=== PATIENT | male | born 1995 ===

== ENCOUNTER 2017-03-14 19:52 | Emergency (ER) | payer SELFPAY ==
[2017-03-14] MEDS ORDERED: Albuterol 0.083% Inhal Sol (2.5 mg/3 mL) UD INH ONE (20:46)
[2017-03-14] MEDS ORDERED: Albuterol 0.083% Inhal Sol (2.5 mg/3 mL) UD ONE (21:23)
[2017-03-14 21:36] LABS: BASO # 0.1 K/uL (0.0-0.2); BASO % 0.8 % (0.0-2.0); EOS # 0.3 K/uL (0.0-0.7); EOS % 2.3 % (0.0-4.0); HEMOGLOBIN 13.5 g/dL (12.0-18.0); LYMPH # 2.7 K/uL (1.0-4.3); LYMPH % 23.4 % (20.0-40.0); MEAN CELL VOLUME 80.3 fl (80.0-94.0); MEAN CORPUSCULAR HEMOGLOBIN 26.2 pg (27.0-31.0); MEAN CORPUSCULAR HGB CONC 32.6 g/dL (33.0-37.0); MEAN PLATELET VOLUME 7.9 fl (7.2-11.7); MONO % 8.8 % (0.0-10.0); NEUT # 7.4 K/uL (1.8-7.0); NEUT % 64.7 % (50.0-75.0); NRBC % 0.1 % (0.0-0.0); RBC 5.13 Mil/uL (4.40-5.90); RED CELL DISTRIBUTION WIDTH 13.9 % (11.5-14.5); WHITE BLOOD COUNT 11.4 K/uL (4.8-10.8)
[2017-03-14 21:50] LABS: ALB/GLOB RATIO 1.2 (1.0-2.1); ALBUMIN 4.5 g/dL (3.5-5.0); CALCIUM 9.1 mg/dL (8.4-10.2); GFR AFRICAN-AMERICAN > 60; GFR NON-AFRICAN AMERICAN > 60
[2017-03-14 22:00] LABS: ALT/SGPT 69 U/L (21-72); AST/SGOT 43 U/L (17-59); BLOOD UREA NITROGEN 10 mg/dl (9-20)
--- NOTE | 2017-03-14 22:11 | ED PDOC ---
HPI: SOB/CHF/COPD Time Seen by Provider: 03/14/17 20:17 Chief Complaint (Nursing): Shortness Of Breath Chief Complaint (Provider): Left flank pain with SOB History Per: Patient History/Exam Limitations: no limitations Onset/Duration Of Symptoms: Days (few) Current Symptoms Are (Timing): Still Present Additional Complaint(s): Carlos Sage is a 21 year old male, with no past medical history, who presents to the emergency department complaining of a worsening left flank pain associated with shortness of breath onset for a few days. He denies any PE history or asthma. Patient denies any recent travel, trauma, fall, fever or chills. No further medical complaints. PMD: Brent Man - Risk Factors PE Risk Factors: Neg: Previous PE Past Medical History Reviewed: Historical Data, Nursing Documentation, Vital Signs Vital Signs: Last Vital Signs Temp 98.9 F 03/14/17 19:56 Pulse 99 H 03/14/17 19:56 Resp 18 03/14/17 21:50 BP 152/93 H 03/14/17 19:56 Pulse Ox 100 03/15/17 00:36 - Medical History PMH: No Chronic Diseases - Surgical History Surgical History: No Surg Hx - Family History Family History: States: Unknown Family Hx - Social History Current smoker - smoking cessation education provided: Yes (light smoker <10 cigarettes daily) Alcohol: None Drugs: Denies - Allergies Allergies/Adverse Reactions: Allergies Allergy/AdvReac Type Severity Reaction Status Date / Time No Known Allergies Allergy Verified 03/14/17 19:56 Review of Systems ROS Statement: Except As Marked, All Systems Reviewed And Found Negative Constitutional: Negative for: Fever, Chills Respiratory: Positive for: Shortness of Breath Musculoskeletal: Positive for: Other (left flank pain) Physical Exam - Reviewed Nursing Documentation Reviewed: Yes Vital Signs Reviewed: Yes - Physical Exam Appears: Positive for: Well, Non-toxic Head Exam: Positive for: ATRAUMATIC, NORMAL INSPECTION, NORMOCEPHALIC Skin: Positive for: Normal Color, Warm, Dry Eye Exam: Positive for: Normal appearance Neck: Positive for: Normal, Painless ROM, Supple Cardiovascular/Chest: Positive for: Regular Rate, Rhythm. Negative for: Chest Non Tender (slightly tender to palpation over left anterior rib, under breast), Murmur Respiratory: Positive for: Normal Breath Sounds. Negative for: Accessory Muscle Use, Respiratory Distress Gastrointestinal/Abdominal: Positive for: Normal Exam, Soft. Negative for: Tenderness Back: Positive for: Normal Inspection. Negative for: L CVA Tenderness, R CVA Tenderness Extremity: Positive for: Normal ROM. Negative for: Pedal Edema, Deformity, Swelling Neurologic/Psych: Positive for: Alert, Oriented - Laboratory Results Result Diagrams: 03/14/17 21:25 03/14/17 21:25 - ECG ECG Rhythm: Positive for: Sinus Rhythm (89 bpm) O2 Sat by Pulse Oximetry: 100 (RA) Pulse Ox Interpretation: Normal Medical Decision Making Medical Decision Making: Initial Impression: Flank pain Initial Plan: --Chest two views (PA/LAT) [RAD] --Duoneb 2.5 mg INH --Toradol 30 mg IV --reevaluation Time: 00:16 Chest X-Ray FINDINGS: Lungs: Low lung volumes. No consolidation. Pleural space: Unremarkable. No pneumothorax. Heart: Unremarkable. No cardiomegaly. Mediastinum: Unremarkable. Bones/joints: Unremarkable. IMPRESSION: Negative for acute abnormality. Time: 00:23 Upon reevaluation, patient is feeling better and medically stable for discharge. Counseling was provided and all questions were answered regarding diagnosis and need for follow up with PMD. There is agreement to discharge plan. Return if symptoms persist or worsen. Scribe Attestation: Documented by Ish Ray & Cris Ambriz, acting as scribes for Kleber Drummond MD Provider Scribe Attestation: All medical record entries made by the Scribe were at my direction and personally dictated by me. I have reviewed the chart and agree that the record accurately reflects my personal performance of the history, physical exam, medical decision making, and the department course for this patient. I have also personally directed, reviewed, and agree with the discharge instructions and disposition. Disposition - Clinical Impression Clinical Impression: Rib pain - Patient ED Disposition Is Patient to be Admitted: No Counseled Patient/Family Regarding: Studies Performed, Diagnosis, Need For Followup - Disposition Referrals: [facility] [Outside] [facility] [Outside] Disposition: Routine/Home Disposition Time: 00:23 Condition: IMPROVED Additional Instructions: follow up with your primary doctor in 1-2 days return to the ED With any worsening or concerning symptoms. Instructions: Chest Wall Pain (ED) Forms: [employer] (Filipino)
[2017-03-14 22:51] VITALS: RESP 18
[2017-03-15 01:37] VITALS: BP 141/82; PULSE 72; TEMP 98.7; O2SAT 97
--- NOTE | 2017-03-15 11:11 | RAD ---
HISTORY: l chest pain COMPARISON: No prior. TECHNIQUE: Chest PA and lateral FINDINGS: LUNGS: No active pulmonary disease. PLEURA: No significant pleural effusion identified. No pneumothorax apparent. CARDIOVASCULAR: Normal. OSSEOUS STRUCTURES: No significant abnormalities. VISUALIZED UPPER ABDOMEN: Normal. OTHER FINDINGS: None. IMPRESSION: No active disease.
== END 2017-03-15 01:47 | disposition home or self-care (01) ==
LOC: H.ER 19:52
DX: R07.89 Other chest pain (principal)
CPT/HCPCS: 71046; 80053; 85025; 99284; J1885